=== PATIENT | male | born 1960 | race Caucasian/White ===

== ENCOUNTER 2021-08-30 18:35 | Emergency (ER) | payer MEDICAID ==
[~2021-08-30] VITALS: Ht 175.3 cm; Wt 77.3 kg
[2021-08-30] MEDS ORDERED: ACET325T64 PO (19:50)
[2021-08-30 20:09] VITALS: BP 112/50
== END 2021-08-30 20:10 | disposition home or self-care (01) ==
LOC: ER 18:37
DX: M79.662 Pain in left lower leg (principal); R05.9 Cough, unspecified; R11.2 Nausea with vomiting, unspecified; Z79.899 Other long term (current) drug therapy
CPT/HCPCS: 73590; 99283